=== PATIENT | male | born 1995 | race Caucasian/White ===

== ENCOUNTER 2017-09-17 19:02 | Emergency (ER) | payer BC ==
[~2017-09-17] VITALS: Ht 180.3 cm; Wt 95.8 kg
[2017-09-17 19:08] VITALS: BP 135/73; PULSE 105; TEMP 36.8; O2SAT 95; Ht 180.3 cm; Wt 95.8 kg
[2017-09-17] MEDS ORDERED: BUPIVACAINE 0.5 % 5 MG/1 ML MPF 30ML VIAL INFIL ONE (20:30)
[2017-09-17] MEDS ORDERED: XYLOCAINE 1%/SOD BICARB 20 ML VIAL INFIL ONE (20:30)
--- NOTE | 2017-09-17 20:34 | EMERGENCY ROOM VISIT NOTE ---
ED Visit Note First contact with patient: 20:12 CHIEF COMPLAINT: Finger laceration HISTORY OF PRESENT ILLNESS: This 22-year-old male patient presents to the emergency department after cutting the left index finger when he got it caught on the top of the fence when he was trying to jump over it. The bleeding has not stopped. Denies weakness or numbness of the finger. The patient has full range of motion of the fingers. The patient rates the pain as minimal and 2/10. The patient denies any other injuries. The patient's tetanus shot is up to date. REVIEW OF SYSTEMS: A 6 system review of systems was completed with positives and pertinent negatives listed in the HPI. ALLERGIES: No known drug allergies MEDICATIONS: Reviewed PMH: Otherwise healthy SOCIAL HISTORY: He does not smoke or drink alcohol. He is a [employer] student. PHYSICAL EXAM: Vital Signs: Reviewed Nurse's notes, vital signs stable. GENERAL : 22-year-old male, in no acute distress, well developed, well nourished. SKIN : There are 2 lacerations on the palmar aspect of the left index finger. The proximal laceration is approximately 2 cm long. The distal laceration is 0.5 cm long. Lacerations or flap-like. They gave apart with traction. There is mild oozing of blood. Sensation in the distal aspect of the finger is intact. Full flexion and extension against resistance. No deep structures such as tendons, bones, or significant blood vessels are seen in the base of the wound. EMERGENCY DEPARTMENT COURSE: I examined the patient. Imaging was performed and reviewed finger xray IMPRESSION: 1. No acute fractures 2. No radiopaque foreign bodies identified Electronically signed by: Neal Ornelas M.D. 09/17/2017 8:59 PM Verbal consent was obtained to perform the procedure. Using sterile technique the wound was cleansed with Betadine. 5 ml of 1% buffered lidocaine and marcain was used to perform a digital block to anesthetize the patient. The area was sterilely draped. Once the patient was anesthetized, the wound was copiously irrigated under pressure with sterile saline. The wound was explored and there were no deep structures injured. The laceration was repaired using 6 simple interrupted 5-0 nylon sutures. The patient tolerated the procedure well. Hemostasis was achieved. The area was cleaned with sterile saline and dressed with bacitracin ointment and bandage. The patient was discharged home in good condition. DIAGNOSIS: Finger laceration DISCHARGE INSTRUCTIONS & TREATMENT: Keep wound clean. It is okay to gently wash the area with soapy water. Do not submerse it in water for long periods of time such as swimming, going in hot tubs or taking baths until the sutures come out. Do not allow any crusting or dried blood to accumulate on sutures. If this occurs, use a 1:1 solution of hydrogen peroxide/water on a Q-tip to clean the wound. Use an antibiotic ointment for 3-4 days, then let wound dry. Suture removal in 14 days. Return sooner for any signs of infection (increasing redness, swelling, drainage). Ice and elevate for swelling and pain. Ibuprofen 600 mg and Tylenol 1000 mg every 6 hrs for pain.
--- NOTE | 2017-09-17 21:01 | DIAGNOSTIC IMAGING REPORT ---
LEFT INDEX FINGER 3 VIEWS CLINICAL HISTORY: Laceration. Possible foreign body. Pain. COMPARISON: None. DISCUSSION: No acute fractures or dislocations are visualized. No radiopaque foreign bodies are evident. IMPRESSION: 1. No acute fractures 2. No radiopaque foreign bodies identified Electronically signed by: Neal Ornelas M.D. 09/17/2017 8:59 PM Dictated Date/Time: 09/17/2017 8:58 PM
== END 2017-09-17 21:55 | disposition home or self-care (01) ==
LOC: C.EDB 19:05 → C.EDD 21:55
DX: S61.211A Laceration without foreign body of left index finger without damage to nail, initial encounter (principal); W22.8XXA Striking against or struck by other objects, initial encounter

== ENCOUNTER 2017-09-26 11:18 | Emergency (ER) | payer BC ==
[~2017-09-26] VITALS: Ht 180.3 cm; Wt 96.0 kg
[2017-09-26 11:20] VITALS: BP 134/85; PULSE 87; TEMP 36.8; O2SAT 98; Ht 180.3 cm; Wt 96.0 kg
--- NOTE | 2017-09-26 15:33 | EMERGENCY ROOM VISIT NOTE ---
ED Visit Note First contact with patient: 11:34 CHIEF COMPLAINT: I need to have my left index finger laceration stitches removed. HISTORY OF PRESENT ILLNESS: Mr. Harris is a 22-year-old male who ambulates into the ED accompanied by female friend requesting suture removal for a left index finger laceration he sustained 9 days ago. He reports there has been no pain, swelling, redness, or drainage from the wound and he feels like the laceration is healing well. PHYSICAL EXAM: Vital Signs: Date Time Temp Pulse Resp B/P (MAP) Pulse Ox O2 Delivery O2 Flow Rate FiO2 09/26/17 11:20 36.8 87 16 134/85 98 LEFT INDEX FINGER: Clean dry and intact wound without signs of infection ( erythema, swelling, tenderness, purulent drainage). ED COURSE: Patient is assessed as noted above. 6 sutures were removed without any difficulty and there was no separation of the wound edges; while removing the stitches a small piece of scab was broken off and had a small amount of bleeding. After suture removal a bacitracin dressing was applied. Patient was educated about today's findings. DISPOSITION: Patient discharged home in stable condition. CLINICAL IMPRESSION: Suture removal; Well healing laceration. PLAN: Wound care and signs of infection were reviewed with the patient. Patient was encouraged return ED for any signs of infection or any new/ concerning symptoms.
== END 2017-09-26 12:00 | disposition home or self-care (01) ==
LOC: C.EDB 11:19 → C.EDD 12:00
DX: Z48.02 Encounter for removal of sutures (principal)

== ENCOUNTER 2018-01-08 14:54 | Emergency (ER) | payer BC ==
[~2018-01-08] VITALS: Ht 180.3 cm; Wt 97.2 kg
[2018-01-08 15:07] VITALS: BP 129/70; PULSE 60; TEMP 36.8; O2SAT 98; Ht 180.3 cm; Wt 97.2 kg
--- NOTE | 2018-01-08 15:27 | EMERGENCY ROOM VISIT NOTE ---
ED Visit Note First contact with patient: 15:10 CHIEF COMPLAINT: Wrist injury HISTORY OF PRESENT ILLNESS: This 22-year-old male patient presents to the emergency department, ambulatory, complaining of pain in the right wrist for approximately 8.5 weeks ago. The patient states he was cleaning his car off, when he slipped and fell, landing with his wrist flexed at that time. He states he immediately experienced pain, but felt it was likely a sprain or strain. He states he spent the first month resting the joint, and only recently has started trying to rehabilitate himself. He states he continues to have pain, and continues to be limited in his range of motion and daily activity. The patient is able to move their wrist. The patient states the pain is only at the extremes of the range and 4/10. No laceration, no weakness. No numbness or tingling. The patient denies any other injury. The patient is able to move their fingers and elbow without difficulty. The patient has not had a previous fracture to this wrist. The patient has taken nothing consistently for the pain. REVIEW OF SYSTEMS: A 6 system review of systems was performed with positives and pertinent negatives in the HPI. ALLERGIES: None MEDICATIONS: None PMH: None SOCIAL HISTORY: The patient is a [employer] student. He lives locally with his roommates. He denies drug, alcohol, tobacco use. PHYSICAL EXAM: Vital Signs: Reviewed Nurse's notes, vital signs stable. GENERAL : This is a 22-year-old male, in no acute distress, but appears to be in pain, well-developed, well-nourished. NEURO: Alert and oriented to person place and time. Normal sensation to light and sharp touch. MUSCULOSKELETAL: There is no deformity of the right wrist. There is no tenderness or edema of the wrist. There is discomfort with extreme flexion over the radius. There is no snuff box tenderness. Range of motion is full. There is no tenderness of the elbow, hand or fingers. Watch Assembler strength 5/5. Radial pulse 2+. SKIN: Normal and intact. The hand is warm and well perfused with capillary refill less than 2 seconds. RADIOLOGY: R WRIST W/NAVICULAR MIN 3 VIEWS CLINICAL HISTORY: 22 years-old Male presenting with right wrist pain. TECHNIQUE: Frontal, bilateral oblique, lateral, and scaphoid views of the right wrist were obtained. COMPARISON: None. FINDINGS: No acute fracture or malalignment. No advanced degenerative change. No radiographic soft tissue abnormality. IMPRESSION: No acute osseous injury. Specifically, no scaphoid fracture is evident. EMERGENCY DEPARTMENT COURSE: I examined the patient. An X-ray of the right wrist was reviewed by myself and radiologist and showed no osseous or soft tissue abnormality. The patient was encouraged to follow-up with [facility] regarding ongoing rehabilitation. The patient was discharged home in good condition. I attest that I have personally reviewed the patient's current medication list. Patient was found to have normal blood pressure on screening and does not require follow-up. Differential diagnosis includes sprain/strain, fracture, contusion, and others DIAGNOSIS: Right wrist pain Current/Historical Medications No Active Prescriptions or Reported Meds Allergies Coded Allergies: No Known Allergies (Unverified , 09/17/17) Vital Signs Date Time Temp Pulse Resp B/P (MAP) Pulse Ox O2 Delivery O2 Flow Rate FiO2 01/08/18 15:07 36.8 60 18 129/70 98 Room Air Departure Information Impression Primary Impression: Right wrist pain Dispostion Home / Self-Care Condition GOOD Prescriptions No Active Prescriptions or Reported Meds Referrals No Doctor, Assigned (PCP) [facility] Patient Instructions ED Sprain Wrist, My [facility] Additional Instructions He was seen in the emergency department today for wrist pain. As discussed, x- ray did not reveal any osseous or soft tissue injury. No further treatment at this time required. Ibuprofen(Motrin, Advil) may be used for fever or pain. Use 600mg every six hours as needed. Take with food. Avoid using more than 2400mg in a 24 hour period. Do not use 2400mg per day for more than three consecutive days without physician direction. Prolonged inappropriate use can lead to stomach upset or ulcers. (AND/OR) Acetaminophen(Tylenol) may be used for fever or pain. Use 1000mg every six hours as needed. Avoid using more than 3000mg in a 24 hour period. Follow-up with [facility] for referral to physical therapy and for further management and rehabilitation. Return to the emergency Department for significantly worsening pain, discoloration of the hand, numbness or tingling, or other concerning symptoms.
--- NOTE | 2018-01-08 15:43 | DIAGNOSTIC IMAGING REPORT ---
R WRIST W/NAVICULAR MIN 3 VIEWS CLINICAL HISTORY: 22 years-old Male presenting with right wrist pain. TECHNIQUE: Frontal, bilateral oblique, lateral, and scaphoid views of the right wrist were obtained. COMPARISON: None. FINDINGS: No acute fracture or malalignment. No advanced degenerative change. No radiographic soft tissue abnormality. IMPRESSION: No acute osseous injury. Specifically, no scaphoid fracture is evident. Electronically signed by: Italo Lubin M.D. 01/08/2018 3:42 PM Dictated Date/Time: 01/08/2018 3:42 PM
== END 2018-01-08 16:08 | disposition home or self-care (01) ==
LOC: C.EDB 14:56 → C.EDD 16:08
DX: M25.531 Pain in right wrist (principal)